=== PATIENT | male | born 1990 | race Caucasian/White ===

== ENCOUNTER 2022-11-13 12:50 | Emergency (ER) | payer OTHER, SELFPAY ==
[2022-11-13] VITALS (7 sets, daily range): BP systolic 116–135; BP diastolic 69–83; PULSE 62–75; RESP 15–16; TEMP 36.4–36.9; O2SAT 95–100
--- NOTE | ~2022-11-13 | XR_ITS ---
EXAM: XR hand LT min 3V DATE: 11/13/2022 15:18 HISTORY: laceration to the left 2nd and 3rd fingers . COMPARISON: None available. FINDINGS: Normal mineralization. No fracture or dislocation. No lytic or blastic lesion. Joint space s are maintained. No erosion or periosteal change. Soft tissues within normal limits. IMPRESSION: No acute osseous finding in the left hand. Reviewed, dictated and finalized at location [facility]
--- NOTE | 2022-11-13 15:06 | ED.UPPEXIN ---
HPI - Extremity Injury (Upper) General Chief Complaint: Extremity Injury, Upper Stated Complaint: hand laceration Time Seen by Provider: 11/13/22 14:40 Source: patient Mode of arrival: ambulatory Limitations: no limitations History of Present Illness HPI narrative: This is a 32 year old male that presents to the ER for lacerations to the left 2nd and 3rd fingers sustained just prior to arrival. Reports he was laying [place] and sustained a laceration to the left 2nd and 3rd fingers via a blade. Reports bleeding and pain to the area. He is not up to date on tetanus. Denies decreased ROM or numbness. Related Data Allergies Allergy/AdvReac Type Severity Reaction Status Date / Time amoxicillin Allergy Verified 04/07/13 18:13 Review of Systems Review of Systems: CONSTITUTIONAL: Denies fever SKIN: Reports laceration MUSCULOSKELETAL: Denies joint pain, or myalgia. NEUROLOGIC: Denies numbness All systems reviewed & are unremarkable except as noted in HPI and below PMFSH Past Medical History Medical History (Updated 11/13/22 @ 16:44 by Uma Brock PA-C) No active medical problems Social History Social History (Updated 11/13/22 @ 15:10 by Uma Brock PA-C) Substance use: never Exam Narrative: GENERAL: Well-appearing, well-nourished, and in no acute distress. HEAD: Normocephalic, atraumatic. EYES: EOMI. EXTREMITIES: Normal range of motion. No edema or obvious deformity. 3.5cm linear laceration into subcutaneous tissue over left 2nd finger dorsal surface. 2cm linear laceration to the left 3rd finger distal phalanx with involvement of small portion of distal nail. Normal sensation. Normal capillary refill SKIN: Warm, dry, no rash. NEURO: No focal deficits. Alert and oriented x3. PSYCH: Normal mood and affect Course Course Emergency Course: Patient and family educated on wound care Vital Signs Vital signs: Vital Signs Temperature 97.6 F 11/13/22 13:02 Pulse Rate 75 11/13/22 13:02 Respiratory Rate 16 11/13/22 13:02 Blood Pressure 135/83 11/13/22 13:02 Pulse Oximetry 100 11/13/22 13:02 Temperature 98.1 F 11/13/22 14:00 Pulse Rate 74 11/13/22 14:00 Respiratory Rate 16 11/13/22 14:00 Blood Pressure 116/74 11/13/22 14:31 Pulse Oximetry 100 11/13/22 14:38 Oxygen Delivery Room Air 11/13/22 14:00 Procedures Laceration Laceration 1: Date: 11/13/22 Time: 16:45 Site: hand Side (If applicable): left Size (cm): 3.5 Description: linear Depth: simple, single layer Local Anesthetic: lidocaine 1% Amount of anesthesia used (mL): 4 Pre-repair: wound explored and irrigated ====== Skin Level ====== Skin layer closed with: nylon Size (cm): 4-0 Number of sutures: 6 Technique: simple, interrupted ====== Subcutaneous Layer ====== ====== Muscle Layer ====== ====== Tendon Layer ====== Laceration 2: Date: 11/13/22 Time: 16:46 Site: hand Side (If applicable): left Size (cm): 4 Description: linear Depth: simple, single layer Local Anesthetic: lidocaine 1% Amount of anesthesia used (mL): 4 Pre-repair: wound explored and irrigated ====== Skin Level ====== Skin layer closed with: nylon Size (cm): 4-0 Number of sutures: 5 Technique: simple, interrupted ====== Subcutaneous Layer ====== ====== Muscle Layer ====== ====== Tendon Layer ====== MDM - Extremity Injury (Upper) [facility] Narrative Medical decision making narrative: Patient presents emergency department for lacerations to the left second and third finger sustained just prior to arrival. He is neurovascularly intact. No bony involvement or deep tissue involvement. Left hand x-rays without acute osseous abnormalities. Patient's wounds were irrigated and closed with sutures. He was educated on woun
[2022-11-13] MEDS: TETANUS,DIPHTHERIA,AC PERTUSSIS ADULT (0.5 ML) BOOSTRIX IM (15:09)
== END 2022-11-13 17:09 | disposition home or self-care (01) ==
PROVIDERS: Emergency Provider Physician Assistant
DX: S61.213A Laceration without foreign body of left middle finger without damage to nail, initial encounter (principal); S61.211A Laceration without foreign body of left index finger without damage to nail, initial encounter; Z23 Encounter for immunization; W27.8XXA Contact with other nonpowered hand tool, initial encounter
CPT/HCPCS: 12002; 73130; 90471; 90715; 99283